=== PATIENT | female | born 1965 | race Caucasian/White ===

== ENCOUNTER 2016-03-16 03:08 | Emergency (ER) | payer BC, SELFPAY ==
[2016-03-16] MEDS ORDERED: Ondansetron HCl/PF 4 MG/2 ML Vial ONE ×2 (03:40→05:59)
[2016-03-16] MEDS ORDERED: Famotidine 20 MG TAB ONE (03:40)
[2016-03-16] MEDS ORDERED: Insulin Regular 300 UNITS/3 ML VIAL ONE (03:40)
[2016-03-16] MEDS ORDERED: Famotidine In NaCl 20 mg/50 ml Premix Bag ONE (03:42)
[2016-03-16] MEDS ORDERED: Ketorolac Tromethamine 30 MG/ML VIAL ONE (04:00)
[2016-03-16 04:11] LABS: #Basophils 0.1 thou/uL (0.0-0.2); #Eosinphils 0.1 thou/uL (0.0-0.7); #Lymphocytes 2.6 thou/uL (1.20-3.40); #Monocytes 0.5 thou/uL (0.11-0.59); %Basophils 1.2 % (0.0-1.0); %Eosinophils 1.6 % (0.0-10.0); %Lymphocytes 27.4 % (21.0-51.0); %Neutrophils 64.7 % (42.0-75.0); Hemoglobin 13.6 g/dL (12.0-16.0); Mean Corpuscular HGB CONC 31.6 g/dL (32.0-36.0); Mean Corpuscular Hemoglobin 30.4 pg (27.0-31.0); Mean Corpuscular Volume 96.1 fl (81.0-99.0); Mean Platelet Volume 8.3 fL (7.4-10.4); Platelet Count 334 thou/uL (130-400); RBC Distribution Width 13.3 % (11.5-14.5); Red Blood Cell (RBC) Count 4.49 mill/uL (4.20-5.40); White Blood Cell (WBC) Count 9.3 thou/uL (4.8-10.8)
[2016-03-16] MEDS ORDERED: Gabapentin 100 MG CAP ONE (05:23)
[2016-03-16 06:09] LABS: CKMB 0.9 ng/mL (0-6.6); Critical Call Chemistry Y; Sodium 131 mmol/L (136-145); Troponin I Less than 0.010 ng/mL (< 0.028)
[2016-03-16 06:10] LABS: Anion Gap 21 mmol/L (10-20); BUN (Urea Nitrogen) 17 mg/dL (7.0-18.7); Calc. Creatinine Clearance 0 mL/min (70-130); Carbon Dioxide 22 mmol/L (22-29); Chloride 91 mmol/L (98-107); Estimated GFR-MDRD 35; Potassium 4.6 mmol/L (3.5-5.1)
[2016-03-16 06:11] LABS: Calcium 9.7 mg/dL (7.8-10.44); Glucose 758 mg/dL (70-105)
[2016-03-16 06:12] LABS: Magnesium 2.3 mg/dL (1.6-2.6); Phosphorus 2.9 mg/dL (2.3-4.7)
[2016-03-16 06:14] LABS: Bacteria/HPF None Seen HPF (None Seen); Bilirubin Negative (Negative); Blood, Urine Trace (Negative); Clarity Clear (Clear); Glucose, Urine (Dipstick) 500 mg/dL (Negative); Leukocyte Negative (Negative); Nitrite Negative (Negative); Protein, Urine (Dipstick) Negative (Neg-Trace); Urobilinogen 0.2 mg/dL (0.2-1.0); WBC/HPF 0-3 HPF (0-3)
[2016-03-16 06:20] LABS: Specific Gravity, Urine 1.003 (1.002-1.036)
[2016-03-16 08:41] LABS: Anion Gap 16 mmol/L (10-20); BUN (Urea Nitrogen) 18 mg/dL (7.0-18.7); Calc. Creatinine Clearance 0 mL/min (70-130); Calcium 8.7 mg/dL (7.8-10.44); Carbon Dioxide 20 mmol/L (22-29); Chloride 104 mmol/L (98-107); Estimated GFR-MDRD 54; Glucose 423 mg/dL (70-105); Potassium 4.1 mmol/L (3.5-5.1); Sodium 136 mmol/L (136-145)
[2016-03-16] MEDS ORDERED: Sodium Chloride 0.9% 1,000 ML BAG ONE (08:59)
--- NOTE | 2016-03-16 10:21 | PICIS ---
[facility] EMERGENCY RECORD TRIAGE (03:18 LPOL) TRIAGE NOTES: High blood sugar, vomiting x 1 week, dizziness, fever. chest pain. (03:18 LPOL) PATIENT: NAME: Sharda Almaraz, AGE: 50, GENDER: female, : Sun 1965, TIME OF GREET: Sat Mar 16, 2016 03:09, PREFERRED LANGUAGE: Rwandan, ETHNICITY: Not or , FALL RISK: NO, ECODE BILLING MAP: [facility], SSN: [id number], Zip Code: [address], KG WEIGHT: 95.25, , , PERSON ID: [id number], PCP: Alfonso. (03:18 LPOL) PHONE: CELL. (03:53) COMPLAINT: VOMITING AND BLOOD SUGAR HIGH. (03:18 LPOL) ADMISSION: URGENCY: 2 Emergent, ADMISSION SOURCE: Home, TRANSPORT: Walk-in, BED: TRIAGE. (03:18 LPOL) SIRS SCORING: Heart Rate 110-139 (2), Temp range 96.8-101.1 (0), respiratory rate 12-24 (0), Mental Status altered: no (0), Infection or Suspected Infection: No. (03:59 LPOL) TRIAGE SCREENING: Patient denies suicidal ideation, Patient denies presence of domestic violence. (03:59 LPOL) PROVIDERS: TRIAGE NURSE: Jovany Figueroa RN. (03:18 LPOL) PREVIOUS VISIT ALLERGIES: fentaNYL, morphine. (03:18 LPOL) fentaNYL, morphine. (03:59 LPOL) KNOWN ALLERGIES fentaNYL morphine CURRENT MEDICATIONS (05:49 LPOL) NovoLIN N: VIAL (ML) : Strength - 100 unit/mL : SUBCUTANEOUS Patient Dose: 90 units Subcutaneous 2 times a day (before meals). metFORMIN: TABLET : Strength - 1,000 mg : ORAL Patient Dose: 1 tab(s) Oral 2 times a day. meTOPROLOL succinate: TABLET, EXTENDED RELEASE 24 HR : Strength - 25 mg : ORAL Patient Dose: 1 tab(s) Oral 2 times a day. Effexor: TABLET : Strength - 75 mg : ORAL Patient Dose: once a day. VITAL SIGNS VITAL SIGNS: BP: 143/83, Pulse: 106, Resp: 18, Temp: 98.7 (Tympanic), Pain: 7, O2 sat: 100 on Room Air, Time: 03/16/2016 03:17. (03:17 LPOL) BP: 138/65, Pulse: 98, Resp: 23, O2 sat: 99 on Room Air, Time: 03/16/2016 03:58. (03:58 LPOL) BP: 143/70, Pulse: 96, Resp: 19, O2 sat: 98 on Room Air, Time: 03/16/2016 05:00. (05:00 LPOL) &a-1R&a+25V*p+0X*x8782D*c202B*c15G*c2P*p-0X&a-25V&a+1R Name: Sharda Almaraz : 1965 F50 MedRec: [id number] AcctNum: [id number] Prepared: Halie Mar 19, 2016 17:57 by Interface Page 1 of 15 pMD [facility] EMERGENCY RECORD BP: 138/72, Pulse: 90, O2 sat: 97 on Room Air, Time: 03/16/2016 06:00. (06:00 SCHI) BP: 132/59, Pulse: 87, Resp: 16, O2 sat: 95 on Room Air, Time: 03/16/2016 07:00. (07:00 SCHI) BP: 140/77, Pulse: 87, Resp: 22, O2 sat: 94 on Room Air, Time: 03/16/2016 08:00. (08:00 SCHI) BP: 149/78, Pulse: 81, Resp: 18, Temp: 97.2 (Tympanic), Pain: 0, O2 sat: 97 on Room Air, Time: 03/16/2016 10:06. (10:06 SCHI) NURSING ASSESSMENT: HEAD-TO-TOE (03:30 LPOL) CONSTITUTIONAL: Gait steady, History obtained from patient, Patient appears, uncomfortable, Patient cooperative, Patient alert, Oriented to person, place and time, Skin warm, Skin dry, Skin normal in color, Mucous membranes pink, Mucous membranes moist, Patient is well-groomed. PAIN: Chest, head. NEURO: GCS:, Eye opening: (4) - Spontaneous, Verbal: (5) - Oriented/conversive, Motor: (6) - Obeys commands/Spontaneous, GCS Total: 15, Upper extremity strength strong, Lower extremity strength strong. ENT: Associated with headache. RESPIRATORY/CHEST: Breath sounds clear, Respiratory assessment findings include respiratory effort easy, Respirations regular, Conversing normally, Neck and chest exam findings include trachea midline, Chest expansion equal, Chest movement symmetrical. CARDIOVASCULAR: Heart rhythm, sinus tachycardia, Heart sounds normal. ABDOMEN: Abdomen assessment findings include abdomen symmetrical, Abdomen soft, Bowel sound normal. GENITOURINARY FEMALE: Associated with urinary complaints, frequency. NURSING ASSESSMENT: NEURO (06:12 LPOL) GCS: (6) Obeying command:, (5) Orientated:, (4) Spontaneous eye opening., Result: 15. NEURO: Associated with dizziness described as, Associated with nausea. NURSING PROCEDURE: BEDSIDE TESTING GLUCOSE: Glucose testing indicated for hyperglycemia, Venous blood sample, Result (mg/dl) HI. (03:50 LPOL) Capillary blood sample, Result (mg/dl) 539. (05:00 LPOL) Capillary blood sample, Result (mg/dl) 500. (06:00 LPOL) Capillary blood sample, Result (mg/dl) 414, Machine number ER. (07:05 SCHI) Capillary blood sample, Result (mg/dl) 359, Machine number ER. (08:15 SCHI) Glucose testing indicated for hyperglycemia, Capillary blood sample, Result (mg/dl) 292, Machine number ER. (09:59 SCHI) FOLLOW-UP: After procedure, results given to Dr. LANE. (07:05 &a-1R&a+25V*p+0X*u0490R*c202B*c15G*c2P*p-0X&a-25V&a+1R Name: Sharda Almaraz : 1965 F50 MedRec: [id number] AcctNum: [id number] Prepared: Halie Mar 19, 2016 17:57 by Interface Page 2 of 15 pMD [facility] EMERGENCY RECORD SCHI) After procedure, results given to Dr. LANE. (08:15 SCHI) After procedure, results given to Dr. LANE. (09:59 SCHI) NURSING PROCEDURE: APPLICATIONS PROJECT MANAGER (03:33 LPOL) APPLICATIONS PROJECT MANAGER: Cardiac monitoring indicated for complaint of chest pain, Patient placed on shift mechanic, Heart rate: 106, showing sinus tachycardia, Patient placed on non-invasive blood pressure monitor, Patient placed on continuous pulse oximetry, Adult/pediatric oxisensor applied, Oxygen saturation 99%. NURSING PROCEDURE: DISCHARGE NOTE (10:10 SCHI) DISCHARGE: Patient discharged to home, ambulating without assistance, family driving, accompanied by other family member, Summary of Care printed/ provided, Patient requested and was provided an electronic copy of Discharge Instructions, Transition record given to patient, Discharge instructions given to patient, Simple or moderate discharge teaching performed, Medication reconciliation form given, Above person(s) verbalized understanding of discharge instructions and follow-up care, Patient treated and evaluated by physician. BELONGINGS: Belongings and valuables with patient at time of discharge include:, Belongings remain with patient, Valuables remain with patient. NOTES: Notes: PT MUCH IMPROVED, PT ENCOURAGED TO RETURN TO ER WITH NEW OR WORSENING SYMPTOMS. SAFETY: Side rails up, Cart/Stretcher in lowest position, Family at bedside, Hospital ID band on. NURSING PROCEDURE: IV IV SITE 1: IV established, to the left antecubital, using a 20 gauge catheter, in one attempt, Labs drawn at time of placement, labeled in the presence of the patient and sent to lab. (03:32 LPOL) FOLLOW-UP SITE 1: IV discontinued, due to patient being discharged, catheter intact. (10:10 SCHI) NURSING PROCEDURE: LAB DRAW (08:15 SCHI) PATIENT IDENTIFIER: Patient actively involved in identification process, Patient's identity verified by patient stating name, Patient's identity verified by patient stating date, Patient's identity verified by hospital ID florianet. LAB DRAW: Lab draw indicated for obtaining specimens for evaluation, Initial lab draw performed, Notes: ADVERTISING SUPERVISOR HERE TO DRAW BLOOD, REPEAT CHEMISTRY. FOLLOW-UP: After procedure, dressing applied to site. NOTES: Emotional support needed and given, Patient tolerated procedure well. SAFETY: Side rails up, Cart/Stretcher in lowest position, Hospital ID band on. &a-1R&a+25V*p+0X*g1151N*c202B*c15G*c2P*p-0X&a-25V&a+1R Name: Sharda Almaraz : 1965 F50 MedRec: [id number] AcctNum: [id number] Prepared: Halie Mar 19, 2016 17:57 by Interface Page 3 of 15 pMD [facility] EMERGENCY RECORD NURSING PROCEDURE: NURSE NOTES NURSES NOTES: Pillow given to patient, Patient is awaiting results. (04:00 LPOL) Shift change report given, to Earlinda, Provided opportunity to answer questions. (06:48 LPOL) Patient assisted to bathroom with steady gait. (08:33 SCHI) ORDER DETAILS Order Name: Basic Metabolic Panel, Status: Active, Time: 07:57 03/16/2016, User: LEONARDO, - Ordered for: MD Lane Stanley, - Entered by: MD Lane Stanley - Sat Mar 16, 2016 07:57, - Quantity: 1, Order Name: Basic Metabolic Panel, Status: Active, Time: 03:30 03/16/2016, User: DAJUAN, - Ordered for: MD Moncada Richard, - Entered by: MD Moncada Richard - Sat Mar 16, 2016 03:30, - Quantity: 1, Order Name: Beta-Hydroxybutyrate (Ketone), Status: Canceled, Time: 07:30 03/16/2016, User: System, - Ordered for: MD Moncada Richard, - Entered by: MD Moncada Richard - Sat Mar 16, 2016 03:30, - Quantity: 1, Order Name: Cardiac Profile w/CKMB & Troponin - I, Status: Active, Time: 03:34 03/16/2016, User: DAJUAN, - Ordered for: MD Moncada Richard, - Entered by: MD Moncada Richard - Sat Mar 16, 2016 03:34, - Quantity: 1, Order Name: CBC with Differential, Status: Active, Time: 03:30 03/16/2016, User: DAJUAN, - Ordered for: MD Moncada Richard, - Entered by: MD Monacda Richard - Sat Mar 16, 2016 03:30, - Quantity: 1, Order Name: Culture, Blood, Status: Active, Time: 03:34 03/16/2016, User: DAJUAN, - Ordered for: MD Moncada Richard, - Entered by: MD Moncada Richard - Tyson Mar 16, 2016 03:34, - Quantity: 1, Order Name: Culture, Urine, Status: Active, Time: 03:34 03/16/2016, User: DAJUAN, - Ordered for: MD Moncada Richard, - Entered by: MD Moncada Richard - Sat Mar 16, 2016 03:34, - Quantity: 1, Order Name: EKG 12 Lead in Emergency Room, Status: Active, Time: 03:34 03/16/2016, User: DAJUAN, - Ordered for: MD Moncada Richard, - Entered by: MD Moncada Richard - Sat Mar 16, 2016 03:34, - Quantity: 1, &a-1R&a+25V*p+0X*h3635I*c202B*c15G*c2P*p-0X&a-25V&a+1R Name: Sharda Almaraz : 1965 F50 MedRec: [id number] AcctNum: [id number] Prepared: Halie Mar 19, 2016 17:57 by Interface Page 4 of 15 pMD [facility] EMERGENCY RECORD Order Name: Magnesium, Status: Active, Time: 03:30 03/16/2016, User: DAJUAN, - Ordered for: MD Moncada Richard, - Entered by: MD Moncada Richard - Sat Mar 16, 2016 03:30, - Quantity: 1, Order Name: Phosphorus, Status: Active, Time: 03:30 03/16/2016, User: DAJUAN, - Ordered for: MD Moncada Richard, - Entered by: MD Moncada Richard - Sat Mar 16, 2016 03:30, - Quantity: 1, Order Name: SALINE LOCK, Status: Done, Time: 03:38 03/16/2016, User: LPOL, - Ordered for: MD Moncada Richard, - Entered by: MD Moncada Richard - Sat Mar 16, 2016 03:30, - Quantity: 1, Order Name: Urinalysis w/ Rflx Microscopic, Status: Active, Time: 03:30 03/16/2016, User: DAJUAN, - Ordered for: MD Moncada Richard, - Entered by: MD Moncada Richard - Sat Mar 16, 2016 03:30, - Quantity: 1, Order Name: XR Chest 1 View Portable, Status: Active, Time: 03:34 03/16/2016, User: DAJUAN, - Ordered for: MD Moncada Richard, - Entered by: MD Moncada Richard - Sat Mar 16, 2016 03:34, - Quantity: 1. MEDICATION ADMINISTRATION SUMMARY Drug Name: NovoLIN R, Dose Ordered: 10 units, Route: IV Push, Status: Given, Time: 08:53 03/16/2016, Drug Name: NovoLIN R, Dose Ordered: 10 units, Route: IV Push, Status: Given, Time: 07:15 03/16/2016, Drug Name: NovoLIN R, Dose Ordered: 10 units, Route: IV Push, Status: Given, Time: 06:10 03/16/2016, Drug Name: sodium chloride 0.9 % intravenous, Dose Ordered: 1000 mL, Route: IV Fluid Infusion, Status: Given, Time: 06:10 03/16/2016, Drug Name: Zofran intravenous, Dose Ordered: 8 mg, Route: IV Push, Status: Given, Time: 06:00 03/16/2016, Drug Name: *gabapentin, Dose Ordered: 600 mg, Route: Oral, Status: Given, Time: 05:42 03/16/2016, Drug Name: sodium chloride 0.9 % intravenous, Dose Ordered: 1000 mL, Route: IV Fluid Infusion, Status: Given, Time: 05:16 03/16/2016, Drug Name: Toradol intravenous, Dose Ordered: 30 mg, Route: IV Push, Status: Given, Time: 04:02 03/16/2016, Drug Name: sodium chloride 0.9 % intravenous, Dose Ordered: 1 L, Route: IV Fluid Infusion, Status: Given, Time: 03:56 03/16/2016, Drug Name: ondansetron HCl intravenous, Dose Ordered: 8 mg, Route: IV Push, Status: Given, Time: 03:55 03/16/2016, Drug Name: NovoLIN R, Dose Ordered: 10 units, Route: IV Push, Status: Given, Time: 03:55 03/16/2016, &a-1R&a+25V*p+0X*v6325S*c202B*c15G*c2P*p-0X&a-25V&a+1R Name: Joe Almarazpietro Froylan : 1965 F50 MedRec: [id number] AcctNum: [id number] Prepared: Halie Mar 19, 2016 17:57 by Interface Page 5 of 15 pMD [facility] EMERGENCY RECORD Drug Name: famotidine (PF), Dose Ordered: 20 mg, Route: IV Push, Status: Given, Time: 03:54 03/16/2016, *Additional information available in notes, Detailed record available in Medication Service section. MEDICATION SERVICE famotidine (PF): Order: famotidine (PF) (famotidine/preservative free) - Dose: 20 mg : IV Push Schedule: Now Ordered by: Liam Moncada MD Entered by: Liam Moncada MD Sat Mar 16, 2016 03:32 , Acknowledged by: Jovany Figueroa RN Sat Mar 16, 2016 03:39 Documented as given by: Jovany Figueroa RN Sat Mar 16, 2016 03:54 Patient, Medication, Dose, Route and Time verified prior to administration. Amount given: 20 mg, IV SITE #1 IVPB or drip, initial infusion, Awake and alert- acceptable, Catheter placement confirmed via flush prior to administration, IV site without signs or symptoms of infiltration during medication administration, No swelling during administration, No drainage during administration, IV flushed after administration, Correct patient, time, route, dose and medication confirmed prior to administration, Patient advised of actions and side-effects prior to administration, Allergies confirmed and medications reviewed prior to administration. : Follow Up : Response assessment performed, No signs or symptoms of allergic reaction noted, Decreased pain. (05:00 LPOL) gabapentin: Order: gabapentin - Dose: 600 mg : Oral Schedule: Now Notes: Read back and verified Ordered by: Liam Moncada MD Entered by: Jovany Figueroa RN Sat Mar 16, 2016 05:42 Documented as given by: Jovany Figueroa RN Sat Mar 16, 2016 05:42 Patient, Medication, Dose, Route and Time verified prior to administration. Amount given: 600 mg, Site: Medication administered P.O., Patient appears Awake and alert- acceptable, Correct patient, time, route, dose and medication confirmed prior to administration, Patient advised of actions and side-effects prior to administration, Allergies confirmed and medications reviewed prior to administration. : Follow Up : Response assessment performed, No signs or symptoms of allergic reaction noted, Decreased pain, Decreased symptoms. (06:14 LPOL) NovoLIN R: Order: NovoLIN R (insulin regular, human) - Dose: 10 units : IV Push Schedule: Now Ordered by: Liam Moncada MD Entered by: Liam Moncada MD Sat Mar 16, 2016 03:31 , Acknowledged by: Jovany Figueroa RN Sat Mar 16, 2016 03:39 Documented as given by: Jovany Figueroa RN Sat Mar 16, 2016 03:55 &a-1R&a+25V*p+0X*b4331Q*c202B*c15G*c2P*p-0X&a-25V&a+1R Name: Sharda Almaraz : 1965 F50 MedRec: [id number] AcctNum: [id number] Prepared: Halie Mar 19, 2016 17:57 by Interface Page 6 of 15 pMD [facility] EMERGENCY RECORD Patient, Medication, Dose, Route and Time verified prior to administration. Amount given: 10 units, IV SITE #1 IVP, initial medication, Slowly, Awake and alert- acceptable, Catheter placement confirmed via flush prior to administration, IV site without signs or symptoms of infiltration during medication administration, No swelling during administration, No drainage during administration, IV flushed after administration, Correct patient, time, route, dose and medication confirmed prior to administration, Patient advised of actions and side-effects prior to administration, Allergies confirmed and medications reviewed prior to administration. : Follow Up : No signs or symptoms of allergic reaction noted, Decreased symptoms, _IV SITE #1:_, Informed MD Steven Siddiqi on hand OK to give., Response assessment performed. (06:13 LPOL) NovoLIN R: Order: NovoLIN R (insulin regular, human) - Dose: 10 units : IV Push Schedule: Now Ordered by: Jose De Jesus Lane MD Entered by: Jose De Jesus Lane MD Sat Mar 16, 2016 06:05 Documented as given by: Jovany Figueroa RN Sat Mar 16, 2016 06:10 Patient, Medication, Dose, Route and Time verified prior to administration. Amount given: 10 units Humulin R, IV SITE #1 IVP, subsequent different medication, Slowly, Awake and alert- acceptable, Catheter placement confirmed via flush prior to administration, IV site without signs or symptoms of infiltration during medication administration, No swelling during administration, No drainage during administration, IV flushed after administration, Correct patient, time, route, dose and medication confirmed prior to administration, Patient advised of actions and side-effects prior to administration, Allergies confirmed and medications reviewed prior to administration, Informed MD Steven Siddiqi on hand OK to give. NovoLIN R: Order: NovoLIN R (insulin regular, human) - Dose: 10 units : IV Push Schedule: Now Ordered by: Jose De Jesus Lane MD Entered by: Jose De Jesus Lane MD Sat Mar 16, 2016 07:14 Documented as given by: Merrill Adkins RN Sat Mar 16, 2016 07:15 Patient, Medication, Dose, Route and Time verified prior to administration. IV SITE #1 IVP, repeat same medication. NovoLIN R: Order: NovoLIN R (insulin regular, human) - Dose: 10 units : IV Push Schedule: Now Ordered by: Jose De Jesus Lane MD Entered by: Jose De Jesus Lane MD Sat Mar 16, 2016 08:48 Documented as given by: Merrill Adkins RN Sat Mar 16, 2016 08:53 Patient, Medication, Dose, Route and Time verified prior to administration. &a-1R&a+25V*p+0X*m2171G*c202B*c15G*c2P*p-0X&a-25V&a+1R Name: Sharda Almaraz : 1965 F50 MedRec: [id number] AcctNum: [id number] Prepared: Halie Mar 19, 2016 17:57 by Interface Page 7 of 15 pMD [facility] EMERGENCY RECORD IV SITE #1 IVP, repeat same medication, Catheter placement confirmed via flush prior to administration, IV site without signs or symptoms of infiltration during medication administration, No swelling during administration, No drainage during administration, IV flushed after administration, Correct patient, time, route, dose and medication confirmed prior to administration, Patient advised of actions and side-effects prior to administration, Allergies confirmed and medications reviewed prior to administration. ondansetron HCl intravenous: Order: ondansetron HCl intravenous (ondansetron HCl) - Dose: 8 mg : IV Push Schedule: Now Ordered by: Liam Moncada MD Entered by: Liam Moncada MD Sat Mar 16, 2016 03:31 , Acknowledged by: Jovany Figueroa RN Sat Mar 16, 2016 03:39 Documented as given by: Jovany Figueroa RN Sat Mar 16, 2016 03:55 Patient, Medication, Dose, Route and Time verified prior to administration. Amount given: 8 mg, IV SITE #1 IVP, initial medication, Slowly. : Follow Up : Response assessment performed, No signs or symptoms of allergic reaction noted, Decreased symptoms, Decreased vomiting, Decreased nausea, _IV SITE #1:_. (05:00 LPOL) sodium chloride 0.9 % intravenous: Order: sodium chloride 0.9 % intravenous (0.9 % sodium chloride) - Dose: 1 L : IV Fluid Infusion Schedule: Now Ordered by: Liam Moncada MD Entered by: Liam Moncada MD Sat Mar 16, 2016 03:31 , Acknowledged by: Jovany Figueroa RN Sat Mar 16, 2016 03:39 Documented as given by: Jovany Figueroa RN Sat Mar 16, 2016 03:56 Patient, Medication, Dose, Route and Time verified prior to administration. Amount given: 1 Liter, Awake and alert- acceptable, Catheter placement confirmed via flush prior to administration, IV site without signs or symptoms of infiltration during medication administration, No swelling during administration, No drainage during administration, IV flushed after administration, Correct patient, time, route, dose and medication confirmed prior to administration, Patient advised of actions and side-effects prior to administration, Allergies confirmed and medications reviewed prior to administration. : Follow Up : Response assessment performed, No signs or symptoms of allergic reaction noted, Decreased symptoms, _IV SITE #1:_, IV fluid infusion discontinued, on Sat Mar 16, 2016 04:50, 55 minutes, ., Total amount infused: 1000, IV Line flushed after administration. (04:50 LPOL) sodium chloride 0.9 % intravenous: Order: sodium chloride 0.9 % intravenous (0.9 % sodium chloride) - Dose: 1000 mL : IV Fluid Infusion Schedule: Now Ordered by: Liam Moncada MD &a-1R&a+25V*p+0X*j9074L*c202B*c15G*c2P*p-0X&a-25V&a+1R Name: Sharda Almaraz : 1965 F50 MedRec: [id number] AcctNum: [id number] Prepared: Halie Mar 19, 2016 17:57 by Interface Page 8 of 15 pMD [facility] EMERGENCY RECORD Entered by: Jovany Figueroa RN Sat Mar 16, 2016 05:40 Documented as given by: Jovany Figueroa RN Sat Mar 16, 2016 05:16 Patient, Medication, Dose, Route and Time verified prior to administration. Amount given: 1000, IV SITE #1 IV fluids established for hydration, IV SITE #1 into left antecubital, IV SITE #1 2nd bag hung, via primary tubing. : Follow Up : Response assessment performed, No signs or symptoms of allergic reaction noted, Decreased symptoms, _IV SITE #1:_, IV fluid infusion discontinued, on Sat Mar 16, 2016 06:05, 50 minutes, ., Total amount infused: 1000. (06:15 LPOL) sodium chloride 0.9 % intravenous: Order: sodium chloride 0.9 % intravenous (0.9 % sodium chloride) - Dose: 1000 mL : IV Fluid Infusion Schedule: Now Ordered by: Jose De Jesus Lane MD Entered by: Jos eDe Jesus Lane MD Sat Mar 16, 2016 06:05 Documented as given by: Jovany Figueroa RN Sat Mar 16, 2016 06:10 Patient, Medication, Dose, Route and Time verified prior to administration. Amount given: 1 Liter, IV SITE #1 IV fluids established for hydration, IV SITE #1 3rd bag hung, via primary tubing. : Follow Up : Response assessment performed, No signs or symptoms of allergic reaction noted, _IV SITE #1:_, IV fluid infusion discontinued, on Sat Mar 16, 2016 07:00, 55 minutes, ., Total amount infused: 1000, IV Line flushed after administration. (07:00 SCHI) Toradol intravenous: Order: Toradol intravenous (ketorolac tromethamine) - Dose: 30 mg : IV Push Schedule: Now Ordered by: Liam Moncada MD Entered by: Liam Moncada MD Sat Mar 16, 2016 03:56 , Acknowledged by: Jovany Figueroa RN Sat Mar 16, 2016 03:57 Documented as given by: Jovany Figueroa RN Sat Mar 16, 2016 04:02 Patient, Medication, Dose, Route and Time verified prior to administration. Amount given: 30 mg, IV SITE #1 IVP, initial medication, Slowly, Awake and alert- acceptable, Catheter placement confirmed via flush prior to administration, IV site without signs or symptoms of infiltration during medication administration, No swelling during administration, No drainage during administration, IV flushed after administration, Correct patient, time, route, dose and medication confirmed prior to administration, Patient advised of actions and side-effects prior to administration, Allergies confirmed and medications reviewed prior to administration. : Follow Up : Response assessment performed, No signs or symptoms of allergic reaction noted, Decreased pain, Decreased symptoms, _IV SITE #1:_. (05:00 LPOL) Zofran intravenous: Order: Zofran intravenous (ondansetron HCl) &a-1R&a+25V*p+0X*d5404C*c202B*c15G*c2P*p-0X&a-25V&a+1R Name: Sharda Almaraz : 1965 F50 MedRec: [id number] AcctNum: [id number] Prepared: FriMar 19, 2016 17:57 by Interface Page 9 of 15 pMD [facility] EMERGENCY RECORD - Dose: 8 mg : IV Push Schedule: Now Ordered by: Jose De Jesus Lane MD Entered by: Jose De Jesus Lane MD Sat Mar 16, 2016 05:58 Documented as given by: Jovany Figueroa RN Sat Mar 16, 2016 06:00 Patient, Medication, Dose, Route and Time verified prior to administration. Amount given: 8 mg, IV SITE #1 IVP, subsequent different medication, Slowly, Awake and alert- acceptable, Catheter placement confirmed via flush prior to administration, IV site without signs or symptoms of infiltration during medication administration, No swelling during administration, No drainage during administration, IV flushed after administration, Correct patient, time, route, dose and medication confirmed prior to administration, Patient advised of actions and side-effects prior to administration, Allergies confirmed and medications reviewed prior to administration. HPI DIABETES (FriMar 19, 2016 17:44 SHAN) CHIEF COMPLAINT: Patient presents for evaluation of hyperglycemia. SEVERITY: Maximum severity of symptoms moderate, Currently symptoms are moderate. ROS (FriMar 19, 2016 17:44 SHAN) CONSTITUTIONAL: Negative constitutional review of systems, Historian denies chills, denies fever. EYES: Negative eye review of systems. ENT: Negative ears, nose, throat review of systems. CARDIOVASCULAR: Negative cardiovascular review of systems, Historian denies chest pain, denies palpitations. RESPIRATORY: Negative respiratory review of systems, Historian denies cough, denies shortness of breath. GI: Negative gastrointestinal review of systems, Historian denies abdominal pain, Historian denies constipation, Historian denies diarrhea. Has nausea. MUSCULOSKELETAL: Negative musculoskeletal review of systems. SKIN: Negative skin review of systems. NEUROLOGIC: Negative neurologic review of systems. ENDOCRINE: Glucoses elevated. HEMO/LYMPHATIC: Normal hematologic/lymphatic system review. PSYCHIATRIC: Negative psychiatric review of systems. NOTES: All other ROS is negative except as listed in HPI. PAST MEDICAL HISTORY MEDICAL HISTORY: Past medical history includes history of diabetes, Type I, on insulin, Past medical history includes history of hypertension, which has been treated, Past medical history includes neurological disease, migraine headaches. (03:59 LPOL) FEMALE SURGICAL HISTORY: Surgical history of orthopedic surgery, right knee- screws, Notes: 24 years ago. (03:59 LPOL) &a-1R&a+25V*p+0X*p5143I*c202B*c15G*c2P*p-0X&a-25V&a+1R Name: Sharda Almaraz : 1965 F50 MedRec: [id number] AcctNum: [id number] Prepared: FriMar 19, 2016 17:57 by Interface Page 10 of 15 pMD [facility] EMERGENCY RECORD PSYCHIATRIC HISTORY: Psychiatric history includes, depression. (03:59 LPOL) SOCIAL HISTORY: Patient denies alcohol use, Patient denies drug use, Patient has no smoking history. (03:59 LPOL) NOTES: I have reviewed and agree with the PMH/PSxH/FamHx/SocHx obtained by the nurse. (FriMar 19, 2016 17:44 SHAN) PHYSICAL EXAM (FriMar 19, 2016 17:44 SHAN) CONSTITUTIONAL: Vital signs reviewed, Patient appears non toxic, Patient alert and oriented to person, place and time, Pt is in no apparent distress. HEAD: Head exam included findings of head atraumatic, normocephalic. EYES: Eye exam included findings of eyelids normal to inspection, Pupils equally round and reactive to light, Extraocular muscles intact. ENT: ENT exam normal, Nose exam normal, no nasal deformity, no bleeding from nares, Pharynx exam normal, Mouth exam normal, mucous membranes moist. NECK: Neck exam included findings of normal range of motion, Trachea midline. RESPIRATORY CHEST: Respiratory and chest exam normal, Breath sounds clear, No wheezing, No rales, Chest exam included findings of chest movement symmetrical, Chest expansion equal. CARDIOVASCULAR: Cardiovascular assessment normal, Cardiovascular exam included findings of heart rate regular rate and rhythm, Heart sounds normal. ABDOMEN FEMALE: Abdominal exam included findings of abdomen nontender, Bowel sounds normal, no mass, no pulsatile masses, no peritoneal signs. BACK: Back exam included findings of normal inspection, range of motion normal, no costovertebral angle tenderness. UPPER EXTREMITY: Upper extremity exam included findings of inspection normal, Range of motion normal. LOWER EXTREMITY: Lower extremity exam included findings of inspection normal, Range of motion normal. NEURO: Neuro exam findings include patient oriented to person, place and time, Speech normal, no focal motor deficits, no focal sensory deficits. SKIN: Skin exam included findings of skin warm, dry, and normal in color. LYMPHATIC: Lymphatic exam normal. PSYCHIATRIC: Psychiatric exam included findings of patient oriented to person place and time, Normal affect. EVENTS TRANSFER: Triage to Emergency Triage. (Sat Mar 16, 2016 03:18 LPOL) Emergency Triage to Main ED -01. (03:19 LPOL) Removed from Emergency Main ED -01. (10:18 SCHI) &a-1R&a+25V*p+0X*s0364Q*c202B*c15G*c2P*p-0X&a-25V&a+1R Name: Sharda Almaraz : 1965 F50 MedRec: [id number] AcctNum: [id number] Prepared: Halie Mar 19, 2016 17:57 by Interface Page 11 of 15 pMD [facility] EMERGENCY RECORD EKG INTERPRETATION (03:56 [facility] 12 LEAD EKG INTERPRETATION: 12 lead EKG interpreted by Emergency Department Physician at time of study, 12 lead EKG shows normal sinus rhythm, Rate (beats per minute): 106, with no ectopics, No previous EKG available for comparison, Interpretation: normal EKG, T waves, inverted, Leads affected: III, [place] normal. DOCTOR NOTES TEXT: Obese hypertensive diabetic; insulin resistant; had glucose 785 on adm labs. Treated with 10 units regular insulin IV and 1 liter of ns bolus. Also with hx of migraine. Hx of vomiting for one week. Urine with no ketones. Discussed care and check out with Dr. Moncada. Is on second liter of fluids. (05:51 SHAN) Accucheck down to 292; patient much improved; understands risk of worsening; has 12 year old son to care for. Will discharge. (09:57 [facility]) DATA REVIEWED: Lab data reviewed. (05:51 SHAN) Lab data reviewed. (:57 SHAN) PROBLEM LIST No recorded problems DIAGNOSIS (:58 SHAN) FINAL: PRIMARY: diabetes type 2 out of control. DISPOSITION PATIENT: Disposition Type: Discharge, Disposition: *Discharge Home. (:58 SHAN) Patient left the department. (10:18 [facility]) INSTRUCTION (09:59 [facility]) DISCHARGE: DIABETES, GENERAL INFO. SPECIAL: 1. increase your metformin to 500 mg four times a day 2. take your normal insulin when you get home 3. check the glucoses at least twice a day 4. return if any problems 5. follwoup with your regular provider in a few days. PRESCRIPTION No recorded prescriptions IMAGING *DISCHARGE INSTRUCTIONS RECEIPT: Image captured from scanner. (10:26 [facility]) *SUPPLY CHARGE SHEET: Image captured from scanner. (10: [facility]) LAB REPORTS: Image captured from scanner. (FriMar 18, 2016 13:23 JPAR) Page 2 added. Image captured from scanner. (FriMar 18, 2016 13:24 JPAR) &a-1R&a+25V*p+0X*s2990M*c202B*c15G*c2P*p-0X&a-25V&a+1R Name: Sharda Almaraz : 1965 F50 MedRec: [id number] AcctNum: [id number] Prepared: FriMar 19, 2016 17:57 by Interface Page 12 of 15 D [facility] EMERGENCY RECORD Page 3 added. Image captured from scanner. (FriMar 18, 2016 13:24 JPAR) Page 4 added. Image captured from scanner. (FriMar 18, 2016 13:24 JPAR) ADMIN DIGITAL SIGNATURE: MD Lane Stanley. (10:02 [facility]) LD Adkins, Merrill. (10:29 [facility]) MD Lane Stanley. (FriMar 19, 2016 16:26 SHAN) MD Lane Stanley. (FriMar 19, 2016 17:45 SHAN) RESULTS LABORATORY: CBC with Differential Collection DT: [facility] Mar 16, 2016 03:47, White Blood Cell (WBC) Count 9.3 thou/uL, Range (4.8-10.8), Red Blood Cell (RBC) Count 4.49 mill/uL, Range (4.20-5.40), Hemoglobin 13.6 g/dL, Range (12.0-16.0), Hematocrit 43.1 %, Range (36.0-47.0), Mean Corpuscular Volume 96.1 fl, Range (81.0-99.0), Mean Corpuscular Hemoglobin 30.4 pg, Range (27.0-31.0), *Mean Corpuscular HGB CONC 31.6 - L g/dL, Range (32.0-36.0), RBC Distribution Width 13.3 %, Range (11.5-14.5), Platelet Count 334 thou/uL, Range (130-400), Mean Platelet Volume 8.3 fL, Range (7.4-10.4), %Neutrophils 64.7 %, Range (42.0-75.0), %Lymphocytes 27.4 %, Range (21.0-51.0), %Monocytes 5.0 %, Range (0.0-10.0), %Eosinophils 1.6 %, Range (0.0-10.0), *%Basophils 1.2 - H %, Range (0.0-1.0), #Neutrophils 6.0 thou/uL, Range (1.40-6.50), #Lymphocytes 2.6 thou/uL, Range (1.20-3.40), #Monocytes 0.5 thou/uL, Range (0.11-0.59), #Eosinphils 0.1 thou/uL, Range (0.0-0.7), #Basophils 0.1 thou/uL, Range (0.0-0.2). (05:42 RW) Accuchek Collection DT: Sat Mar 16, 2016 05:40, *Accuchek 539 - H mg/dL, Range (70-110). (05:49 [facility]) Urinalysis with Microscopic Collection DT: Sat Mar 16, 2016 04:00, Color Straw , Range (Yellow), Clarity Clear , Range (Clear), *Specific [place], Urine - L , Range (1.005-1.030), pH, Urine 6.0 , Range (5.0-9.0), Leukocyte Negative , Range (Negative), Nitrite Negative , Range (Negative), Protein, Urine (Dipstick) Negative mg/dL, Range (Neg-Trace), *Glucose, Urine (Dipstick) 500 - H mg/dL, Range (Negative), Ketone, Urine Negative mg/dL, Range (Negative), Urobilinogen 0.2 mg/dL, Range (0.2-1.0), Bilirubin Negative , Range (Negative), *Blood, Urine Trace - H , Range (Negative), *RBC/HPF 7-10 - H HPF, Range (0-3), WBC/HPF 0-3 HPF, Range (0-3), *Squamous Epithelial 4-6 - H HPF, Range (0-3), &a-1R&a+25V*p+0X*l6018H*c202B*c15G*c2P*p-0X&a-25V&a+1R Name: Sharda Almaraz : 1965 F50 MedRec: [id number] AcctNum: [id number] Prepared: Halie Mar 19, 2016 17:57 by Interface Page 13 of 15 pMD [facility] EMERGENCY RECORD Bacteria/HPF None Seen HPF, Range (None Seen). (06:19 [facility]A) Accuchek Collection DT: [facility] Mar 16, 2016 06:11, *Accuchek 500 - H mg/dL, Range (70-110). (06:19 [facility]) Magnesium Collection DT: [facility] Mar 16, 2016 03:47, Magnesium 2.3 mg/dL, Range (1.6-2.6), NOTE: Higher values can be expected in females during menses . (06:19 [facility]) Phosphorus Collection DT: Sat Mar 16, 2016 03:47, Phosphorus 2.9 mg/dL, Range (2.3-4.7). (06:19 [facility]) Basic Metabolic Panel Collection DT: [facility] Mar 16, 2016 03:47, Critical Call Chemistry Y , Refer to Critical Value designated by an *L or *H , *Sodium 131 - L mmol/L, Range (136-145), Potassium 4.6 mmol/L, Range (3.5-5.1), *Chloride 91 - L mmol/L, Range (98-107), Carbon Dioxide 22 mmol/L, Range (22-29), *Anion Gap 21 - H mmol/L, Range (10-20), BUN (Urea Nitrogen) 17 mg/dL, Range (7.0-18.7), *Creatinine 1.55 - H mg/dL, Range (0.6-1.1), Estimated GFR-MDRD 35 , Reference Range for Estimated GFR: Greater than 90, mL/min/1.73 m2 NOTE: The MDRD equation has not been validated for use, with the elderly (over 70 years of age), women, patients with, serious comorbid condition or persons with extremes of body size, muscle, mass, or nutritional status. , *Glucose 758 - *H mg/dL, Range (70-105), This is a CRITICAL VALUE Results called to: JOVANY FIGUEROA RN Results, called and verbally verified through read-back. by Tawanda Gonzales, on 03/16/16 at 0611. , Calcium 9.7 mg/dL, Range (7.8-10.44). (06:19 [facility]DEA) Cardiac Profile w/CKMB & TropI Collection DT: Sat Mar 16, 2016 03:47, CKMB 0.9 ng/mL, Range (0-6.6), Troponin I Less than 0.010 ng/mL, Range (< 0.028). (06:19 [facility]) Urinalysis with Microscopic Collection DT: Sat Mar 16, 2016 04:00, Color Straw , Range (Yellow), Clarity Clear , Range (Clear), Specific [place], Urine 1.003 , Range (1.002-1.036), pH, Urine 6.0 , Range (5.0-9.0), Leukocyte Negative , Range (Negative), Nitrite Negative , Range (Negative), Protein, Urine (Dipstick) Negative mg/dL, Range (Neg-Trace), *Glucose, Urine (Dipstick) 500 - H mg/dL, Range (Negative), Ketone, Urine Negative mg/dL, Range (Negative), Urobilinogen 0.2 mg/dL, Range (0.2-1.0), Bilirubin Negative , Range (Negative), *Blood, Urine Trace - H , Range (Negative), *RBC/HPF 7-10 - H HPF, Range (0-3), &a-1R&a+25V*p+0X*l9997V*c202B*c15G*c2P*p-0X&a-25V&a+1R Name: Sharda Almaraz : 1965 F50 MedRec: [id number] AcctNum: [id number] Prepared: Halie Mar 19, 2016 17:57 by Interface Page 14 of 15 pMD [facility] EMERGENCY RECORD WBC/HPF 0-3 HPF, Range (0-3), *Squamous Epithelial 4-6 - H HPF, Range (0-3), Bacteria/HPF None Seen HPF, Range (None Seen). (06:45 LWAL) Accuchek Collection DT: Sat Mar 16, 2016 07:12, *Accuchek 414 - H mg/dL, Range (70-110). (08:02 SCHI) Accuchek Collection DT: Sat Mar 16, 2016 08:20, *Accuchek 359 - H mg/dL, Range (70-110). (08:30 SHAN) Basic Metabolic Panel Collection DT: Sat Mar 16, 2016 08:25, Sodium 136 mmol/L, Range (136-145), Potassium 4.1 mmol/L, Range (3.5-5.1), Chloride 104 mmol/L, Range (98-107), *Carbon Dioxide 20 - L mmol/L, Range (22-29), Anion Gap 16 mmol/L, Range (10-20), BUN (Urea Nitrogen) 18 mg/dL, Range (7.0-18.7), Creatinine 1.07 mg/dL, Range (0.6-1.1), Estimated GFR-MDRD 54 , Reference Range for Estimated GFR: Greater than 90, mL/min/1.73 m2 NOTE: The MDRD equation has not been validated for use, with the elderly (over 70 years of age), women, patients with, serious comorbid condition or persons with extremes of body size, muscle, mass, or nutritional status. , *Glucose 423 - H mg/dL, Range (70-105), Calcium 8.7 mg/dL, Range (7.8-10.44). (08:48 LEONARDO) Accuchek Collection DT: Sat Mar 16, 2016 10:03, *Accuchek 292 - H mg/dL, Range (70-110). (10:10 LEONARDO) Sterling: HEIDE=LD Pace, Jama BOB=RENETTA Suarez, Joelle SHIPMAN=LD Figueroa, Jovany GOMES=LD Barriga, Patricia GRAFF=MD Antwan, Liam STEWART=LD Adkins, Merrill PATTERSON=MD Deric, Jose De Jesus &a-1R&a+25V*p+0X*s8419D*c202B*c15G*c2P*p-0X&a-25V&a+1R Name: Sharda Almaraz : 1965 F50 MedRec: [id number] AcctNum: [id number] Prepared: Halie Mar 19, 2016 17:57 by Interface Page 15 of 15 pMD [facility]TDD
--- NOTE | 2016-03-16 10:52 | RAD ---
SINGLE VIEW OF CHEST: Date: 03/16/16 INDICATION: Chest pain. COMPARISON: 09/25/14. IMPRESSION: No acute cardiopulmonary abnormality. No appreciable change from the comparison study. POS: [facility]
== END 2016-03-16 10:10 | disposition home or self-care (01) ==
LOC: MADERS 03:08
DX: E11.65 Type 2 diabetes mellitus with hyperglycemia (principal); I10 Essential (primary) hypertension; Z79.4 Long term (current) use of insulin
CPT/HCPCS: 36416; 71010; 80048; 81001; 82553; 83735; 84100; 84484; 85025; 87040; 93005; 96361; 96374; 96375; 96376; 36415-59; J1815; J1885; J2405; J7050

== ENCOUNTER 2016-11-27 14:35 | Emergency (ER) | payer SELFPAY ==
[~2016-11-27 14:35] MED LIST: Sodium Chloride 0.9% 1,000 ML BAG ONE; Sodium Chloride 0.9% 500 ML BAG ONE
[2016-11-27 15:17] LABS: #Basophils 0.1 thou/uL (0.0-0.2); #Eosinphils 0.1 thou/uL (0.0-0.7); #Lymphocytes 3.5 thou/uL (1.20-3.40); #Monocytes 0.5 thou/uL (0.11-0.59); #Neutrophils 6.2 thou/uL (1.40-6.50); %Basophils 0.8 % (0.0-1.0); %Lymphocytes 33.5 % (21.0-51.0); %Monocytes 4.5 % (0.0-10.0); %Neutrophils 60.1 % (42.0-75.0); Hemoglobin 13.9 g/dL (12.0-16.0); Mean Corpuscular HGB CONC 31.9 g/dL (32.0-36.0); Mean Corpuscular Hemoglobin 29.7 pg (27.0-31.0); Mean Corpuscular Volume 93.1 fl (81.0-99.0); Mean Platelet Volume 9.1 fL (7.4-10.4); Platelet Count 274 thou/uL (130-400); RBC Distribution Width 12.1 % (11.5-14.5); Red Blood Cell (RBC) Count 4.69 mill/uL (4.20-5.40); White Blood Cell (WBC) Count 10.4 thou/uL (4.8-10.8)
[2016-11-27] MEDS ORDERED: Insulin Regular 300 UNITS/3 ML VIAL ONE (15:27)
[2016-11-27 15:34] LABS: Anion Gap 18 mmol/L (10-20); BUN (Urea Nitrogen) 9 mg/dL (9.8-20.1); Calc. Creatinine Clearance 0 mL/min (70-130); Calcium 9.3 mg/dL (7.8-10.44); Carbon Dioxide 25 mmol/L (22-29); Chloride 90 mmol/L (98-107); Estimated GFR-MDRD 58; Potassium 3.9 mmol/L (3.5-5.1); Sodium 129 mmol/L (136-145)
[2016-11-27 15:43] LABS: Glucose 611 mg/dL (70-105)
[2016-11-27] MEDS ORDERED: Potassium Chloride 20 MEQ TAB ONE (16:01)
[2016-11-27 16:03] LABS: Bilirubin Negative (Negative); Blood, Urine Small (Negative); Glucose, Urine (Dipstick) >=1000 mg/dL (Negative); Leukocyte Negative (Negative); Nitrite Negative (Negative); Protein, Urine (Dipstick) Negative (Neg-Trace); Urobilinogen 0.2 mg/dL (0.2-1.0); pH, Urine 5.5 (5.0-9.0)
[2016-11-27 16:04] LABS: Clarity Hazy (Clear); Specific Gravity, Urine 1.034 (1.002-1.036)
[2016-11-27 16:07] LABS: Bacteria/HPF Rare-Few HPF (None Seen); WBC/HPF 0-3 HPF (0-3); Yeast-All Forms 1+ HPF (None Seen)
[2016-11-27] MEDS ORDERED: Aspirin 325 MG TAB ONE (16:25)
[2016-11-27] MEDS ORDERED: Nitroglycerin 0.4 MG TAB 1 EACH ONE (16:28)
[2016-11-27] MEDS ORDERED: Acetaminophen 325 MG TAB ONE (16:28)
[2016-11-27 16:32] LABS: CKMB 1.2 ng/mL (0-6.6); Troponin I 0.018 ng/mL (< 0.028)
--- NOTE | 2016-11-27 17:10 | RAD ---
SINGLE VIEW OF THE CHEST: 11/27/16 COMPARISON: 03/16/16 HISTORY: Chest pain. FINDINGS: Single view of the chest shows a normal sized cardiomediastinal silhouette. There is no evidence of consolidation, mass, or pleural effusion. The bones are unremarkable. IMPRESSION: No evidence of acute cardiopulmonary disease. POS: [facility]
== END 2016-11-27 17:08 | disposition short-term general hospital (02) ==
LOC: MADERS 14:35
DX: E10.65 Type 1 diabetes mellitus with hyperglycemia (principal); R07.9 Chest pain, unspecified; I10 Essential (primary) hypertension; F32.9 Major depressive disorder, single episode, unspecified; Z79.899 Other long term (current) drug therapy
CPT/HCPCS: 36416; 71010; 80048; 81003; 81015; 82553; 84484; 85025; 85379; 93005; 96361; 96374; 96376; J1815; J7050

== ENCOUNTER 2017-05-26 04:42 | Emergency (ER) | payer SELFPAY ==
[2017-05-26] MEDS ORDERED: Ketorolac Tromethamine 30 MG/ML VIAL ONE (05:09)
[2017-05-26] MEDS ORDERED: Ondansetron ODT 4 MG TAB ONE (05:09)
== END 2017-05-26 05:25 | disposition home or self-care (01) ==
LOC: MADERS 04:42
DX: M79.7 Fibromyalgia (principal); I10 Essential (primary) hypertension; G43.909 Migraine, unspecified, not intractable, without status migrainosus; F32.9 Major depressive disorder, single episode, unspecified; E11.40 Type 2 diabetes mellitus with diabetic neuropathy, unspecified
CPT/HCPCS: 96372; J1885; Q0162